=== PATIENT | female | born 1955 | race Caucasian/White ===

== ENCOUNTER → 2018-11-14 | Outpatient (CLI) | payer BC ==
--- NOTE | 2018-11-14 09:48 | US ---
EXAMINATION TYPE: US venous doppler duplex LE LT DATE OF EXAM: 11/14/2018 8:38 AM COMPARISON: NONE CLINICAL HISTORY: M79.662 Pain in left lower leg. SIDE PERFORMED: Left TECHNIQUE: The lower extremity deep venous system is examined utilizing real time linear array sonog claire with graded compression, doppler sonography and color-flow sonography. VESSELS IMAGED: External Iliac Vein (EIV) Common Femoral Vein Deep Femoral Vein Greater Saphenous Vein * Femoral Vein Popliteal Vein Small Saphenous Vein * Proximal Calf Veins (* superficial vessels) Left Leg: Negative for DVT Grayscale, color doppler, spectral doppler imaging performed of the deep veins of the left lower extr emity. There is normal flow, compressibility, vascular waveforms. IMPRESSION: No ultrasound evidence for acute DVT in the left lower extremity.
== END | disposition home or self-care (01) ==
LOC: RADUSWWP 08:12
PROVIDERS: ATTEND Internal Medicine
DX: M79.662 Pain in left lower leg (principal)